=== PATIENT | female | born 1990 | race Caucasian/White ===

== ENCOUNTER 2021-10-28 15:48 | Emergency (ER) | payer OTHER ==
[~2021-10-28] VITALS: Ht 160 cm; Wt 54.4 kg
== END 2021-10-28 20:53 | disposition home or self-care (01) ==
LOC: ER 15:48
DX: O20.0 Threatened abortion (principal); Z11.52 Encounter for screening for COVID-19

== ENCOUNTER 2022-11-26 11:17 | Outpatient (CLI) | payer OTHER | END 2022-11-26 13:30 | disposition home or self-care (01) | LOC: PRENATAL 11:17 | PROVIDERS: ATTEND Obstetrics & Gynecology Maternal & Fetal Medicine | DX: O35.9XX0 Maternal care for (suspected) fetal abnormality and damage, unspecified, not applicable or unspecified (principal); O35.3XX0 Maternal care for (suspected) damage to fetus from viral disease in mother, not applicable or unspecified; Z3A.23 23 weeks gestation of pregnancy ==

== ENCOUNTER 2023-02-04 08:41 | Outpatient (CLI) | payer OTHER | END 2023-02-04 09:41 | disposition home or self-care (01) | LOC: PRENATAL 08:41 | PROVIDERS: ATTEND Obstetrics & Gynecology Maternal & Fetal Medicine | DX: O26.819 Pregnancy related exhaustion and fatigue, unspecified trimester (principal); O36.8199 Decreased fetal movements, unspecified trimester, other fetus; O35.9XX0 Maternal care for (suspected) fetal abnormality and damage, unspecified, not applicable or unspecified; Z3A.33 33 weeks gestation of pregnancy ==